=== PATIENT | male | born 1965 | race Caucasian/White ===

== ENCOUNTER → 2018-04-29 | Outpatient (CLI) | payer OTHER ==
[~2018-04-29] MED LIST: ATOM60 PO; CLON.1 PO; CYPIONATE; DICMIS75EC PO; DIPH25 PO; DULO60 PO; GABA300 PO; HYDACE10B PO; LAMO100 PO; METF850 PO; OLME20 PO; PANT40 PO; TESTTP TOP
== END | disposition home or self-care (01) ==
LOC: LAB SHORT 18:30 → LAB 18:30
DX: L03.90 Cellulitis, unspecified (principal)
CPT/HCPCS: 87070; 87077; 87147; 87186; 87205

== ENCOUNTER 2019-11-06 06:59 | Day surgery (SDC) | payer OTHER ==
[~2019-11-06] VITALS: Ht 182.9 cm; Wt 133.8 kg
[~2019-11-06 06:59] MED LIST changes: +ABILIFY MYCITE10 MG PO; +AMLO5 PO; +ASPI81CH PO; +BUPR150ER PO; +CHLO25B PO; +GLIP10 PO; +HUMULIN 70100 UNIT/2 SC; +INSULANPEN SC; +Lovastatin20 MG PO; +METF500 PO; +ZESTRIL40 M1 PO
--- NOTE | 2019-11-06 07:32 | NUR ---
Ambulatory in Day SurgeryPatient states colon prep results clear. History, Chart, Medications and Allergies reviewed before start of procedure.Lungs clear T/O to Auscultation. Patient confirms NPO status and agrees with scheduled surgery. Patient States Post-Procedure ride home has been arranged.
--- NOTE | 2019-11-06 08:00 | NUR ---
11/06/19 0800 Anuja Cancino History, Chart, Medications and Allergies reviewed before start of procedure. PATIENT CONFIRMS NPO STATUS AND AGREES WITH SCHEDULED PROCEDURE. MONITOR INTACT WITH CONTINUOUS PULSE OXIMETRY AND INTERMITTENT BP. O2 VIA N/C INTACT THROUGHOUT SEDATION/PROCEDURE. 3-LEAD EKG REVIEWED WITH PHYSICIAN PRIOR TO START OF PROCEDURE. PATIENT DETERMINED TO BE ASA APPROPRIATE FOR PROPOFOL SEDATION PRIOR TO START OF PROCEDURE BY DR. MORSE. Bite Block Placed. HURRICAINE SPRAY TO OROPHARYX.
== END 2019-11-06 09:27 | disposition home or self-care (01) ==
LOC: ORSCMMR 06:59 → ORD 08:00 → ORSCMMR 09:27
PROVIDERS: Internal Medicine Gastroenterology
PROC: 0DB48ZX Excision of Esophagogastric Junction, Via Natural or Artificial Opening Endoscopic, Diagnostic (ICD-10-PCS; principal; 2019-11-06 08:00)
PROC: 0DBL8ZX Excision of Transverse Colon, Via Natural or Artificial Opening Endoscopic, Diagnostic (ICD-10-PCS; principal; 2019-11-06 08:00)
PROC: 0DB58ZX Excision of Esophagus, Via Natural or Artificial Opening Endoscopic, Diagnostic (ICD-10-PCS; principal; 2019-11-06 08:00)
PROC: 0DB98ZX Excision of Duodenum, Via Natural or Artificial Opening Endoscopic, Diagnostic (ICD-10-PCS; principal; 2019-11-06 08:00)
PROC: 0DB68ZX Excision of Stomach, Via Natural or Artificial Opening Endoscopic, Diagnostic (ICD-10-PCS; principal; 2019-11-06 08:00)
DX: K21.0 Gastro-esophageal reflux disease with esophagitis (principal); Z12.11 Encounter for screening for malignant neoplasm of colon; B37.81 Candidal esophagitis; D12.3 Benign neoplasm of transverse colon; G47.33 Obstructive sleep apnea (adult) (pediatric); E11.9 Type 2 diabetes mellitus without complications; I10 Essential (primary) hypertension; E78.00 Pure hypercholesterolemia, unspecified; F32.9 Major depressive disorder, single episode, unspecified; Z79.4 Long term (current) use of insulin; Z79.899 Other long term (current) drug therapy; Z79.82 Long term (current) use of aspirin; Z87.891 Personal history of nicotine dependence
CPT/HCPCS: 82947; 88305; 88312; 88342; J2250; J3010; J7120

== ENCOUNTER → 2022-09-29 | Outpatient (CLI) | payer OTHER | LOC: PLD 07:52 → LAB SHORT 07:52 | DX: L60.2 Onychogryphosis (principal) | CPT/HCPCS: 88305; 88312 ==

== ENCOUNTER → 2022-12-01 | Outpatient (CLI) | payer OTHER | END | disposition home or self-care (01) | LOC: LAB SHORT 09:45 → LAB 09:45 | DX: K21.9 Gastro-esophageal reflux disease without esophagitis (principal) | CPT/HCPCS: 87338 ==

== ENCOUNTER → 2023-04-17 | Outpatient (CLI) | payer OTHER ==
[~2023-04-17] MED LIST changes: +BACLOFEN5 M5 PO; +BASAGLAR K100 UNIT/3 SC; +CELE100 PO; +CYMBALTA20 M2 PO; +DEPO-TESTO200 MG/1 M IM; +DULOXETINE HCL60 M1 PO; +NOVOLOG FL100 UNIT/3; +PANTOPRAZOLE SO40 M2 PO; +Robaxin750 MG PO; +TADALAFIL5 M1 PO
== END ==
LOC: LAB 07:41 → LAB SHORT 07:41
DX: B35.1 Tinea unguium (principal); L60.2 Onychogryphosis
CPT/HCPCS: 87102

== ENCOUNTER 2023-05-11 10:37 | Day surgery (SDC) | payer OTHER ==
[~2023-05-11] VITALS: Ht 182.9 cm; Wt 129.0 kg
[~2023-05-11 10:37] MED LIST changes: -BACLOFEN5 M5 PO; -BASAGLAR K100 UNIT/3 SC; -CELE100 PO; -CYMBALTA20 M2 PO; -DEPO-TESTO200 MG/1 M IM; -DULOXETINE HCL60 M1 PO; -NOVOLOG FL100 UNIT/3; -PANTOPRAZOLE SO40 M2 PO; -Robaxin750 MG PO; -TADALAFIL5 M1 PO
[2023-05-11] MEDS ORDERED: BACLOFEN5 M5 PO (11:48)
[2023-05-11] MEDS ORDERED: CELE100 PO (11:48)
[2023-05-11] MEDS ORDERED: DULOXETINE HCL60 M1 PO (11:49)
[2023-05-11] MEDS ORDERED: CYMBALTA20 M2 PO (11:49)
[2023-05-11] MEDS ORDERED: BASAGLAR K100 UNIT/3 SC (11:50)
[2023-05-11] MEDS ORDERED: Robaxin750 MG PO (11:51)
[2023-05-11] MEDS ORDERED: NOVOLOG FL100 UNIT/3 (11:52)
[2023-05-11] MEDS ORDERED: PANTOPRAZOLE SO40 M2 PO (11:52)
[2023-05-11] MEDS ORDERED: TADALAFIL5 M1 PO (11:53)
[2023-05-11] MEDS ORDERED: DEPO-TESTO200 MG/1 M IM (11:54)
--- NOTE | 2023-05-11 12:54 | NUR ---
05/11/23 1254 Elizabeth Almendarez A PILLOW UNDER HEAD, ARMS SECURED ON PADDED ARM BOARDS.
--- NOTE | 2023-05-11 13:19 | NUR ---
05/11/23 1319 АНДРЕЙ LATHAM AT PT BEDSIDE, PT IS PARTIAL WEIGHT BEARING WITH POST-OP SHOE.
--- NOTE | 2023-05-11 13:43 | NUR ---
05/11/23 1343 АНДРЕЙ LATHAM pt tolerating po nourishment, crackers, and apple juice and water. sitting in recliner, talking with nurse. denies pain or nausea/vomiting. Pt verbalizes readiness to go home.
[2023-05-11 13:58] VITALS: BP 135/85
== END 2023-05-11 14:08 | disposition home or self-care (01) ==
LOC: ORSCSDS 10:37
PROVIDERS: Podiatrist
PROC: 0SNP0ZZ Release Right Toe Phalangeal Joint, Open Approach (ICD-10-PCS; principal; 2023-05-11 12:30)
PROC: 0L8V0ZZ Division of Right Foot Tendon, Open Approach (ICD-10-PCS; principal; 2023-05-11 12:30)
DX: M20.41 Other hammer toe(s) (acquired), right foot (principal); I10 Essential (primary) hypertension; G47.33 Obstructive sleep apnea (adult) (pediatric); K21.9 Gastro-esophageal reflux disease without esophagitis; E11.9 Type 2 diabetes mellitus without complications; Z79.4 Long term (current) use of insulin; Z79.899 Other long term (current) drug therapy; Z79.84 Long term (current) use of oral hypoglycemic drugs; E66.9 Obesity, unspecified; Z68.38 Body mass index [BMI] 38.0-38.9, adult
CPT/HCPCS: 82947; A9270; J0690; J2250; J2704; J2795; J3010; J7120